=== PATIENT | female | born 2000 | race African-American/Black ===

== ENCOUNTER 2020-05-04 19:24 | Inpatient (IN) ==
[2020-05-04] MEDS: LACTATED RINGERS 1,000 ML IV SCH ×3 (19:55→23:45)
[2020-05-04] MEDS ORDERED: ONDANSETRON 4 MG/2 ML VIAL IV PRN (20:01)
[2020-05-04] MEDS ORDERED: MEPERIDINE 50 MG/1 ML VIAL IV PRN (20:01)
[2020-05-04] MEDS ORDERED: BUTORPHANOL 2 MG/ML VIAL IV PRN (20:01)
[2020-05-04] MEDS ORDERED: LACTATED RINGERS 500 ML IV PRN (20:01)
[2020-05-04 20:24] LABS: Basophils % 0.2 % (0.0-0.8); Eosinophils % 0.3 % (0.00-10.9); Hematocrit 32.4 VOL% (35.7-47.0); Hemoglobin 10.9 GM/DL (12.0-16.0); Immature Granulocytes % 0.3 %; Immature Granulocytes Absolute 0.02 #; Lymphocytes # 1.6 10*3/uL (1.4-4.0); Lymphocytes % 25.5 % (21.3-54.2); Mean Corpuscular HGB Conc 33.6 GM/DL (32-36); Mean Corpuscular Volume 81.8 FL (87-102); Mean Platelet Volume 10.1 FL (9.6-12.0); Monocytes % 11.5 % (1.7-12.7); Neutrophils % 62.2 % (38.7-73.9); Platelet Count 232 T/CUMM (130-400); Red Blood Count 3.96 MC/CUMM (3.8-5.5); White Blood Count 6.2 T/CUMM (4-12)
[2020-05-04] MEDS ORDERED: diphenhydrAMINE 50 MG/1 ML VIAL IV PRN ×2 (20:30)
[2020-05-04] MEDS ORDERED: hydrOXYzine HCL 25 MG/1 ML VIAL IM PRN (20:30)
[2020-05-04] MEDS ORDERED: PROMETHAZINE 25 MG/1 ML VIAL IM ONE (20:30)
[2020-05-04] MEDS ORDERED: ePHEDrine 50 MG/ML VIAL IV PRN (20:30)
[2020-05-04] MEDS ORDERED: NALOXONE 0.4 MG/ML VIAL IV PRN (20:30)
[2020-05-04] MEDS ORDERED: FAMOTIDINE 20 MG/2 ML VIAL IV ONE (20:37)
[2020-05-04] MEDS ORDERED: CITRIC ACID/SODIUM CITRATE 30 ML UDCUP PO ONE (20:37)
[2020-05-04 20:52] LABS: Alanine Aminotransferase 15 U/L (13-56); Albumin 2.6 G/DL (3.4-5.0); Alkaline Phosphatase 99 U/L (45-117); Aspartate Amino Transferase 14 U/L (0-37); Bilirubin,Total < 0.39 MG/DL (0.2-1.0); Blood Urea Nitrogen 7 MG/DL (7-18); Calcium 9.2 MG/DL (8.5-10.1); Estimated Glom Filtration Rate 136 ML/MIN; Glucose 97 MG/DL (74-106); Osmolality,Calculated 276.4 MOS/KG (273-304)
[2020-05-04] MEDS: fentaNYL 2 MCG/ROPIV 0.2% EPID 100 ML EPIDURAL SCH (21:30)
[2020-05-04 23:06] LABS: Bilirubin,Urine Negative (Negative); Blood, Urine Negative (Negative); Glucose,Urine (UA) Negative (Negative); Ketones,Urine Negative (Negative); Mucus,Urine Occasional /LPF (Occasional); Nitrite,Urine Negative (Negative); Protein,Urine Negative; Squamous Epithelial Cell,Urine Occasional /HPF (0-10); Urine Appearance CLEAR (Clear); Urine Color Yellow (Yellow); Urine Specific Gravity 1.012 (1.001-1.035); Urine Urobilinogen < 2.0 EU/DL (0.2-1.0); WBC,Urine <1 /HPF (0-6)
[2020-05-04] MEDS ORDERED: ceFAZolin 2,000 MG in PREMIX 1 EACH IV ONE (23:30)
[2020-05-04] MEDS ORDERED: SODIUM CHLORIDE 0.9% 100 ML IV ONE (23:37)
[2020-05-04] MEDS ORDERED: AMPICILLIN 2,000 MG VIAL ONE (23:37)
[2020-05-05] MEDS ORDERED: AMPICILLIN INJ 2,000 MG in SODIUM CHLORIDE 0.9% 100 ML IV ONE
[2020-05-05] MEDS ORDERED: ceFAZolin 1,000 MG in SYRINGE 1 EACH IV SCH (04:00)
[2020-05-05] MEDS ORDERED: AMPICILLIN INJ 1,000 MG in SODIUM CHLORIDE 0.9% 100 ML IV SCH (04:00)
[2020-05-05] MEDS: fentaNYL 2 MCG/ROPIV 0.2% EPID 100 ML EPIDURAL SCH (04:35)
[2020-05-05] MEDS ORDERED: CARBOPROST TROMETHAMINE 250 MCG/ML AMP IM ONE (05:29)
[2020-05-05] MEDS ORDERED: TRANEXAMIC ACID 1,000 MG/10 ML VIAL ONE (05:29)
[2020-05-05] MEDS ORDERED: METHYLERGONOVINE 0.2 MG/1 ML AMP ONE (05:29)
[2020-05-05] MEDS ORDERED: OXYTOCIN/LR 20 UNIT/1,000 ML BAG IV ONE ×3 (05:29→08:32)
[2020-05-05] MEDS ORDERED: miSOPROStoL 200 MCG TABLET ONE (05:29)
[2020-05-05] MEDS ORDERED: BISACODYL 10 MG SUPP RECTAL PRN (08:32)
[2020-05-05] MEDS ORDERED: ACETAMINOPHEN 325 MG TABLET PO PRN (08:32)
[2020-05-05] MEDS ORDERED: WITCH HAZEL PADS 100/JAR TOP PRN (08:32)
[2020-05-05] MEDS ORDERED: BENZOCAINE 20%/MENTHOL 0.5% SPRAY 56 GM CAN TOP PRN (08:32)
[2020-05-05] MEDS ORDERED: HYDROCORTISONE 2.5% RECTAL CREAM 30 GM TUBE TOP PRN (08:32)
[2020-05-05] MEDS ORDERED: LANOLIN 50% CREAM 0.3 OZ TUBE TOP PRN (08:32)
[2020-05-05] MEDS ORDERED: MEASLES/MUMPS/RUBELLA VACCINE 0.5 ML VIAL SUBCUT ONE (08:32)
[2020-05-05] MEDS ORDERED: RHO(D) IMMUNE GLOBULIN 300 MCG SYRINGE IM ONE (08:32)
[2020-05-05] MEDS ORDERED: DIPH/TET/ACEL PERT BOOSTER VACCINE 0.5 ML VIAL IM ONE (08:32)
[2020-05-05] MEDS ORDERED: ONDANSETRON 4 MG/2 ML VIAL IV PRN (08:32)
[2020-05-05] MEDS: oxyCODONE/ACETAMINOPHEN 5-325 MG TABLET PO PRN ×2 (11:20→17:47)
[2020-05-05] MEDS: DOCUSATE SODIUM 100 MG CAPSULE PO SCH (20:19)
[2020-05-05] MEDS: IBUPROFEN 800 MG TABLET PO PRN (20:20)
[2020-05-06] MEDS: oxyCODONE/ACETAMINOPHEN 5-325 MG TABLET PO PRN ×3 (03:43→19:21)
[2020-05-06] MEDS: IBUPROFEN 800 MG TABLET PO PRN ×3 (03:44→19:16)
[2020-05-06 07:51] LABS: Basophils % 0.3 % (0.0-0.8); Eosinophils # 0.1 10*3/uL (0.0-0.87); Hematocrit 28.3 VOL% (35.7-47.0); Hemoglobin 9.4 GM/DL (12.0-16.0); Immature Granulocytes % 0.4 %; Immature Granulocytes Absolute 0.03 #; Lymphocytes # 2.6 10*3/uL (1.4-4.0); Lymphocytes % 33.1 % (21.3-54.2); Mean Corpuscular HGB Conc 33.2 GM/DL (32-36); Mean Corpuscular Volume 83.7 FL (87-102); Mean Platelet Volume 10.5 FL (9.6-12.0); Monocytes % 8.1 % (1.7-12.7); Neutrophils % 57.1 % (38.7-73.9); Platelet Count 179 T/CUMM (130-400); Red Blood Count 3.38 MC/CUMM (3.8-5.5); Red Cell Distribution Width 14.4 % (9.3-17.3); White Blood Count 7.8 T/CUMM (4-12)
[2020-05-06] MEDS: DOCUSATE SODIUM 100 MG CAPSULE PO SCH ×2 (08:39→20:22)
[2020-05-06 08:49] LABS: Anisocytosis Slight; Band Neutrophils 3 % (0-10); Eosinophils 3 % (0-10); Lymphocytes 33 % (20-55); Platelet Estimate Normal; Segmented Neutrophils 53 % (50-85); Total Cells Counted 100
[2020-05-07] MEDS: IBUPROFEN 800 MG TABLET PO PRN ×2 (07:14→12:32)
[2020-05-07] MEDS: oxyCODONE/ACETAMINOPHEN 5-325 MG TABLET PO PRN ×2 (07:15→12:31)
[2020-05-07 07:35] VITALS: BP 122/55
[2020-05-07] MEDS: DOCUSATE SODIUM 100 MG CAPSULE PO SCH (08:05)
== END 2020-05-07 12:30 | disposition home or self-care (01) | DRG 807 ==
LOC: N.LDOUT 19:24 → N.LD 19:30 → N.OB 05-05 11:04
PROVIDERS: ADMIT Specialist; ATTEND Specialist